=== PATIENT | male | born 1965 | race Caucasian/White ===

== ENCOUNTER 2024-08-27 07:25 | Emergency (ER) | payer BC, SELFPAY ==
[2024-08-27 07:30] VITALS: BP 167/96
[2024-08-27 07:59] VITALS: BMI 43.4
--- NOTE | 2024-08-27 08:10 | ED.GENMED ---
History of Present Illness
General
Chief Complaint: Musculo-Skeletal Complaint
Source: patient
Exam Limitations: none
Time Seen by Provider: 08/27/24 07:56
Nursing documentation reviewed up to this point in time: agreed with
History of Present Illness
History of Present Illness:
Patient is a 59-year-old male presents to the ER with swelling to left leg. Patien has had some intermittent tingling over the past several days to left lower leg but yesterday noticed swelling. He denies any injury. Denies any pain. Denies any
redness fevers. No prior history of DVT PE. He did drive to [place] in June. Denies shortness of breath
Review of Systems
Review of Systems
Allergies reviewed?: Yes
All Other Systems: ROS reviewed and negative except as documented in HPI and ROS
Constitutional: Reports no symptoms
Respiratory: Reports no symptoms; Denies trouble breathing
Musculoskeletal: Reports other (lle swelling )
Skin: Reports no symptoms
Psychiatric: Reports no symptoms
Phy Exam
General Physical Exam
General Presentation: no apparent distress
General age: appears stated age
General Skin: warm and dry
General Habitus: normal
General Mental: alert
General Hydration: appears well hydrated
Neurological Exam
Neurological Exam: alert and oriented x3
Musculoskeletal Exam
Musculoskeletal Exam: other (lle with strong pulses + obvious swelling to left lower leg from knee down )
Skin Exam
Skin Exam: normal color and warm/dry
Psychiatric Exam
Psychiatric Exam: normal mood/affect
Course
Orders/Labs/Results
Orders:
Orders
08/27/24 08:10
Venous Doppler Lwr Ext Left [US Periph Venous LOWER Ext LT] Urgent
Comment:
Reason For Exam: swelling
08/27/24 08:19
Complete Blood Count/With Diff Urgent
Comprehensive Metabolic Panel Urgent
Abnormal Lab Results
08/27/24
08:19
Absolute Neuts (auto) 7.6 H 10^3/uL
(1.4-6.5)
Absolute Lymphs (auto) 0.9 L 10^3/uL
(1.2-3.4)
Absolute Monos (auto) 0.8 H 10^3/uL
(0.1-0.6)
Neutrophils % 79.4 H %
(42.2-75.2)
Lymphocytes % 9.4 L %
(20.5-51.1)
Glucose 139 H mg/dl
(70-99)
08/27/24 08:19
08/27/24 08:19
Vital Signs
Initial and Last Documented VS:
Initial Vital Signs
Temp Pulse Resp BP Pulse Ox
98.4 F 91 18 167/96 97
08/27/24 07:30 08/27/24 07:30 08/27/24 07:30 08/27/24 07:30 08/27/24 07:30
Last Documented Vital Signs
Temp Pulse Resp BP Pulse Ox
98.4 F 60 16 141/76 97
08/27/24 07:30 08/27/24 09:32 08/27/24 09:32 08/27/24 09:32 08/27/24 07:30
Electric Lineman consulted with Physician
Electric Lineman consulted with physician?: Yes
Name of Physician Consulted: Penny
MDM/Problems Addressed
MDM/Problems Addressed:
As documented patient is a 59-year-old male complains of swelling to the left leg for the past several days no injury no prior history of DVT PE. Patient does have an acute DVT in the left femoral vein popliteal and peroneal veins patient no acute
distress no shortness of breath labs unremarkable Case discussed ED physician will order anticoagulation.
Patient ordered 10 mg of Eliquis. Will DC on 10 mg twice daily for 7 days followed by 5 mg twice daily. Discussed close outpatient follow-up with primary care provider in the next 4 days for reevaluation. I did certified substance abuse counselor patient on Eliquis and
risks associate with Eliquis. He is to return if any worsening of symptoms including shortness of breath.
*Radiology
Radiology exam reviewed: radiology read reviewed
*Pulse Oximetry
Patient hypoxic: no
Comment: 97% on room air not hypoxic
*Critical Care Note
Total Time (30-74mins, 75-104mins- exclusive of procedures): Not Applicable
ED Attending Note
-
Portions of this chart may have been created with voice recognition software.� Occasional wrong word or��sound alike� substitutions may have occurred due to the inherent limitations of voice recognition software.
Discharge Plan
Departure
Patient Disposition: Home (Routine Discharge)
Date of Disposition: 08/27/24
Time of Disposition: 09:56
Patient with high blood pressure during this ER visit?: Yes
Condition: Fair
Covid-19: Not Applicable
Discharge Problem:
DVT (deep venous thrombosis)
Instructions: Deep vein thrombosis (DVT) - ED discharge instructions, BLOOD PRESSURE
Prescriptions:
New
Eliquis DVT-PE Treat 30D Start 5 mg (74 tabs) tablets,dose pack
See Rx Instructions .ROUTE .COMPLEX Qty: 74 0RF
Rx Instructions:
orally per package directions
10 mg twice daily for 7 days followed by 5 mg twice daily
No Action
allopurinol 100 mg Tablet
100 mg PO DAILY
losartan 25 mg Tablet
25 mg PO DAILY
levothyroxine 150 mcg Capsule
150 mcg PO DAILY
Referrals:
Aashish Newman, [Family Provider, Family Practice]
Activity Restrictions/Additional Instructions:
As discussed you have a DVT in your left lower extremity. You were given the first dose of Eliquis here in the ER. As discussed you will be taking this 10 mg twice daily for 7 days followed by 5 mg twice daily. Please follow-up with your family
doctor the next 2 to 3 days for reevaluation of your symptoms return if any worsening of symptoms include increasing swelling of lower extremity numbness tingling shortness of breath or any further concerns
Interventions
Interventions:
*Risk Screen - Suicide Last Done: 08/27/24 07:30
*General Assessment Last Done: 08/27/24 07:30
*Neglect/Abuse Screening Last Done: 08/27/24 07:30
*ED- Fall Risk Assessment Last Done: 08/27/24 07:57
*ED COVID-19 Vaccine History Last Done: 08/27/24 07:57
ED-Musculoskeletal Assessment Last Done: 08/27/24 08:00
Discharge Date and Time
Print Language: [id number]
[2024-08-27 08:32] LABS: % Basophils 0.3 % (0-2); % Eosinophils 2.7 % (0-6); % Immature Granulocytes 0.4 % (0-0.5); % Lymphocytes 9.4 % (20.5-51.1); % Monocytes 7.8 % (1.7-9.3); % Neutrophils 79.4 % (42.2-75.2); Absolute Eosinophils 0.3 10^3/uL (0-0.7); Absolute Lymphocytes 0.9 10^3/uL (1.2-3.4); Absolute Monocytes 0.8 10^3/uL (0.1-0.6); Absolute Neutrophils 7.6 10^3/uL (1.4-6.5); Hematocrit 45.5 % (39.0-52.0); Hemoglobin 15.7 g/dL (13.0-18.0); Mean Corp Hgb Conc. 34.5 g/dL (33.0-37.0); Mean Corpuscular Hgb 30.4 pg (27.0-31.0); Mean Platelet Volume 10.1 fL (7.4-10.4); Nucleated Red Blood Cells % 0 % (-); Platelet Count 175 10^3/uL (130-400); Red Blood Cell Count 5.17 10^6/uL (4.70-6.10); Red Cell Dist. Width 13.8 % (11.5-14.5); White Blood Cell Count 9.6 10^3/uL (4.8-10.8)
[2024-08-27 08:41] LABS: ALT (SGPT) 29 U/L (0-50); AST (SGOT) 35 U/L (17-59); Albumin 4.2 g/dl (3.5-5.0); Alkaline Phosphatase 54 U/L (38-126); Blood Urea Nitrogen 18 mg/dl (9-20); Calcium 9.1 mg/dl (8.4-10.2); Carbon Dioxide 25 mmol/L (22-30); Chloride 107 mmol/L (98-107); Estimated Creatinine Clearance > 125 ml/min; Glucose 139 mg/dl (70-99); Potassium 4.3 mmol/L (3.5-5.1); Sodium 140 mmol/L (135-145); Total Bilirubin 0.9 mg/dl (0.2-1.3); Total Protein 7.5 g/dl (6.3-8.2); eGFR > 60.00
[2024-08-27 09:32] VITALS: BP 141/76
[2024-08-27] MEDS: ELIQUIS 10 MG PO (09:58)
== END 2024-08-27 10:32 | disposition home or self-care (01) ==
LOC: EMR 07:25
PROVIDERS: Nurse Practitioner; EMERGENCY PHYSICIAN Student in an Organized Health Care Education/Training Program; FAMILY PHYSICIAN Family Medicine
DX: I82.412 Acute embolism and thrombosis of left femoral vein (principal); I82.432 Acute embolism and thrombosis of left popliteal vein; I82.452 Acute embolism and thrombosis of left peroneal vein; R03.0 Elevated blood-pressure reading, without diagnosis of hypertension
CPT/HCPCS: 99285; 80053; 85025; 93971

== ENCOUNTER → 2024-11-17 07:48 | Outpatient (REF) | payer BC, SELFPAY | LOC: DHVS 07:48 | PROVIDERS: ATTENDING PHYSICIAN Family Medicine | DX: I82.462 Acute embolism and thrombosis of left calf muscular vein (principal) | CPT/HCPCS: 93971 ==

== ENCOUNTER → 2025-03-01 07:02 | Outpatient (REF) | payer BC, SELFPAY | LOC: RAD 07:02 | PROVIDERS: ATTENDING PHYSICIAN Internal Medicine Hematology & Oncology; FAMILY PHYSICIAN Family Medicine | DX: D75.1 Secondary polycythemia (principal); I82.4Z2 Acute embolism and thrombosis of unspecified deep veins of left distal lower extremity | CPT/HCPCS: 93971 ==